=== PATIENT | male | born 1960 | race Two or more races ===

== ENCOUNTER → 2016-08-16 | Outpatient (CLI) | payer BC ==
[~2016-08-16] MED LIST: MULTTAB99 PO
[2016-08-16 07:58] LABS: Basophils # (auto) 0 uL; Basophils % (auto) 0.3 % (0.0-2.0); Eosinophils # (auto) 0.2 uL; Eosinophils % (auto) 2.3 % (0.0-7.0); Hematocrit 43.6 % (41.0-53.0); Hemoglobin 15.1 g/dL (13.5-17.5); Lymphocytes # (auto) 2.6 uL; Lymphocytes % (auto) 30.2 % (10.0-50.0); Mean Corpuscular Hemoglobin 31.4 pg (28.0-32.0); Mean Corpuscular Hgb Conc. 34.6 g/dL (32.0-36.0); Mean Corpuscular Volume 90.7 fL (80.0-100.0); Monocytes # (auto) 0.4 uL; Monocytes % (auto) 4.2 % (0.0-12.0); Neutrophils # (auto) 5.4 uL; Platelet Count (auto) 200 10^3/uL (140-450); White Blood Cell 8.6 10^3/uL (4.4-10.8)
[2016-08-16 08:18] LABS: Albumin 3.6 g/dL (3.4-5.0); Alkaline Phosphatase 134 U/L (45-117); Anion Gap 11 (5-15); Aspartate Aminotransferase 49 U/L (15-37); BUN/Creatinine Ratio 17.9; Bilirubin, Total 0.8 mg/dL (0.2-1.0); Blood Urea Nitrogen 15 mg/dL (7-18); Calcium 8.4 mg/dL (8.5-10.1); Carbon Dioxide 25 mmol/L (21-32); Chloride 110 mmol/L (98-107); Cholesterol 162 mg/dL (<200); GFR African American 122 mL/min; GFR Non-African American 100 mL/min; Glucose 115 mg/dL (74-106); HDL Cholesterol 26 mg/dL (40-59); Potassium 3.8 mmol/L (3.5-5.1); Sodium 146 mmol/L (136-145); Total Protein 7.8 g/dL (6.4-8.2); Triglycerides 582 mg/dL (<150)
== END | disposition home or self-care (01) ==
LOC: LAB 06:48
DX: I10 Essential (primary) hypertension (principal); Z83.49 Family history of other endocrine, nutritional and metabolic diseases; Z12.5 Encounter for screening for malignant neoplasm of prostate
CPT/HCPCS: 36415; 80053; 80061; 83036; 84153; 84443; 85025

== ENCOUNTER → 2018-06-08 | Outpatient (CLI) | payer BC ==
[2018-06-08 10:34] LABS: Basophils # (auto) 0.1 uL; Basophils % (auto) 0.7 % (0.0-2.0); Eosinophils # (auto) 0.3 uL; Eosinophils % (auto) 3.5 % (0.0-7.0); Hematocrit 46.3 % (41.0-53.0); Hemoglobin 15.7 g/dL (13.5-17.5); Lymphocytes % (auto) 37.2 % (10.0-50.0); Mean Corpuscular Hemoglobin 32.1 pg (28.0-32.0); Mean Corpuscular Volume 94.4 fL (80.0-100.0); Monocytes # (auto) 0.6 uL; Monocytes % (auto) 7.3 % (0.0-12.0); Neutrophils # (auto) 4.1 uL; Neutrophils % (auto) 51.3 % (37.0-80.0); Nucleated Red Blood Cells % 0.1 %; Platelet Count (auto) 140 10^3/uL (140-450); Red Blood Cells 4.91 10^6/uL (4.5-5.90); Red Cell Distribution Width 12.4 % (11.8-14.3); White Blood Cell 8.1 10^3/uL (4.4-10.8)
[2018-06-08 10:55] LABS: Albumin 3.7 g/dL (3.4-5.0); Calcium 9.1 mg/dL (8.5-10.1); Potassium 4.4 mmol/L (3.5-5.1)
[2018-06-08 11:00] LABS: BUN/Creatinine Ratio 22.5; Bilirubin, Total 1.4 mg/dL (0.2-1.0); Total Protein 8.2 g/dL (6.4-8.2)
[2018-06-08 11:01] LABS: Free T4 (Free Thyroxine) 0.73 ng/dL (0.89-1.76); Prostate Specific Antigen 0.48 ng/mL (0.0-4.0)
== END | disposition home or self-care (01) ==
LOC: LAB 10:13
PROVIDERS: ATTEND Internal Medicine
DX: I10 Essential (primary) hypertension (principal); E78.5 Hyperlipidemia, unspecified
CPT/HCPCS: 36415; 80053; 84153; 84439; 84443; 85025

== ENCOUNTER 2020-01-13 15:50 | Inpatient (IN) | payer BC ==
[~2020-01-13] VITALS: Ht 175.3 cm; Wt 95.0 kg
[2020-01-13] MEDS ORDERED: ENOXAPARIN SOD 100 MG/1 ML SYRINGE SC ONE ×2 (16:15→17:00)
[2020-01-13] MEDS ORDERED: ZINC SULFATE 220mg CAP or TAB PO ONE (16:15)
[2020-01-13] MEDS ORDERED: ASCORBIC ACID 500 MG TAB PO ONE (16:15)
[2020-01-13] MEDS ORDERED: PANTOPRAZOLE 40 MG/10 ML VIAL INJ IV ONE (16:15)
[2020-01-13] MEDS ORDERED: AZITHROMYCIN 500MG/ 250ML 250 ML IV ONE (16:15)
[2020-01-13] MEDS ORDERED: methylPREDNISolone SOD SUCC 125 MG/2 ML VL IV ONE ×2 (16:15→19:45)
[2020-01-13 16:59] LABS: Basophils # (auto) 0 10 ^3/uL (0-0.2); Basophils % (auto) 0.4 % (0.0-2.0); Eosinophils # (auto) 0 10 ^3/uL (0-0.8); Hemoglobin 15.4 g/dL (13.5-17.5); Lymphocytes # (auto) 0.5 10 ^3/uL (0.4-5.4); Lymphocytes % (auto) 3.8 % (10.0-50.0); Mean Corpuscular Hemoglobin 32.5 pg (28.0-32.0); Mean Corpuscular Hgb Conc. 34.2 g/dL (32.0-36.0); Monocytes # (auto) 0.2 10 ^3/uL (0-1.3); Monocytes % (auto) 1.3 % (0.0-12.0); Neutrophils # (auto) 11.8 10 ^3/uL (1.6-8.6); Neutrophils % (auto) 94.5 % (37.0-80.0); Platelet Count (auto) 102 10^3/uL (140-450); Red Blood Cells 4.73 10^6/uL (4.5-5.90); Red Cell Distribution Width 13.3 % (11.8-14.3); White Blood Cell 12.5 10^3/uL (4.4-10.8)
[2020-01-13] MEDS ORDERED: NITROGLYCERIN 0.4 MG SL TAB SL PRN (17:00)
[2020-01-13] MEDS ORDERED: LORazepam 2MG/ML-1ML VIAL IV PRN (17:00)
[2020-01-13] MEDS ORDERED: MORPHINE SULFATE 4 MG/ML SYR/VIAL IV PRN (17:00)
[2020-01-13] MEDS ORDERED: VANCOMYCIN PER PHARMACY 1,000 MG IV SCH (17:00)
[2020-01-13] MEDS ORDERED: MORPHINE SULF INJ 2 MG/ML SYRINGE 1ML IV PRN ×2 (17:00→18:15)
[2020-01-13] MEDS ORDERED: ONDANSETRON HCL 4 MG/2 ML VIAL ONE (17:06)
[2020-01-13 17:07] LABS: Albumin 2.1 g/dL (3.4-5.0); Calcium 8.1 mg/dL (8.5-10.1); Potassium 4.5 mmol/L (3.5-5.1)
[2020-01-13] MEDS: ENOXAPARIN SOD 100 MG/1 ML SYRINGE SC SCH (17:10)
[2020-01-13 17:12] LABS: Bilirubin, Total 4.2 mg/dL (0.2-1.0); Lactic Acid w/Reflex 6.1 mmol/L (0.4-2.0); Total Protein 7.1 g/dL (6.4-8.2)
[2020-01-13] MEDS ORDERED: ONDANSETRON HCL 4 MG/2 ML VIAL IV ONE (17:15)
[2020-01-13] MEDS ORDERED: ACETAMINOPHEN 500 MG TAB PO ONE (17:15)
[2020-01-13 17:22] LABS: CRP High Sensitivity 12.9 mg/dL (< 0.3)
[2020-01-13] MEDS ORDERED: SODIUM CHLORIDE 0.9% 1,000 ML IV SCH (17:33)
[2020-01-13] MEDS ORDERED: LACTATED RINGER'S 1,000 ML IV ONE (18:00)
[2020-01-13] MEDS: FUROSEMIDE 20 MG/2 ML VIAL IV SCH (18:00)
[2020-01-13] MEDS: PIPERACILLIN-TAZOB 3.375GM 100 ML IV SCH (18:00)
[2020-01-13] MEDS: HYDROCORTISONE SOD SUCC 100 MG/2ML INJ VIAL IV SCH (18:00)
[2020-01-13] MEDS ORDERED: PIPERACILLIN-TAZOB 3.375GM 3.375 GM in D5W 5% 100 ML IV SCH (18:00)
[2020-01-13] MEDS ORDERED: PIPERACILLIN-TAZOB 3.375GM 100 ML IV ONE (18:25)
[2020-01-13 18:59] VITALS: BP 100/64
[2020-01-13] MEDS ORDERED: LISI-285 PO (19:42)
[2020-01-13] MEDS ORDERED: ASPI-498 PO (19:42)
[2020-01-13] MEDS ORDERED: diphenhdrAMINE HCL 50 MG/1 ML VL IV ONE (19:45)
[2020-01-13] MEDS ORDERED: ACETAMINOPHEN 650 mg PER 20 mL UD PO ONE (19:45)
[2020-01-13] MEDS ORDERED: TOCILIZUMAB 400 MG in SODIUM CHL 0.9% 80 ML IV ONE (20:00)
[2020-01-13 20:08] LABS: Lactic Acid w/Reflex 5.1 mmol/L (0.4-2.0)
[2020-01-13] MEDS ORDERED: ACETAMINOPHEN 325 MG TAB PO ONE ×2 (20:30)
[2020-01-13] MEDS ORDERED: VANCOMYCIN 1GM/250ML 250 ML IV SCH (21:00)
[2020-01-13 21:15] LABS: INR 1.16 (0.9-1.15); Partial Thromboplastin Time 44.3 sec (23.64-32.05)
[2020-01-13] MEDS: FAMOTIDINE (10MG/ML) 2ML VL IV SCH (22:15)
[2020-01-13 23:19] VITALS: BP 104/60
[2020-01-14] VITALS (7 sets, daily range): BP systolic 104–156; BP diastolic 60–76
[2020-01-14 03:51] LABS: Urine Amorphous Crystal FEW /hpf (None Seen); Urine Bacteria NONE SEEN /hpf (None Seen); Urine Blood Negative /uL (Negative); Urine Hyaline Cast MANY /lpf (0 - 2); Urine Mucus FEW (None Seen); Urine Specific Gravity 1.022 (1.001-1.035); Urine WBC 7 /hpf (0 - 3)
[2020-01-14] MEDS: HYDROCORTISONE SOD SUCC 100 MG/2ML INJ VIAL IV SCH ×4 (06:00→17:42)
[2020-01-14] MEDS: PIPERACILLIN-TAZOB 3.375GM 100 ML IV SCH ×2 (06:00)
[2020-01-14] MEDS: FUROSEMIDE 20 MG/2 ML VIAL IV SCH ×2 (06:00→17:41)
[2020-01-14] MEDS: FAMOTIDINE (10MG/ML) 2ML VL IV SCH (07:34)
[2020-01-14] MEDS: ASCORBIC ACID 1,000 MG TAB PO SCH (07:34)
[2020-01-14] MEDS: ENOXAPARIN SOD 100 MG/1 ML SYRINGE SC SCH ×2 (07:34→22:00)
[2020-01-14 07:55] LABS: Basophils # (auto) 0 10 ^3/uL (0-0.2); Basophils % (auto) 0.1 % (0.0-2.0); Eosinophils # (auto) 0 10 ^3/uL (0-0.8); Hematocrit 43.3 % (41.0-53.0); Hemoglobin 14.7 g/dL (13.5-17.5); Lymphocytes # (auto) 0.4 10 ^3/uL (0.4-5.4); Lymphocytes % (auto) 5.8 % (10.0-50.0); Mean Corpuscular Hemoglobin 32.2 pg (28.0-32.0); Mean Corpuscular Hgb Conc. 33.9 g/dL (32.0-36.0); Mean Corpuscular Volume 95.2 fL (80.0-100.0); Monocytes # (auto) 0.1 10 ^3/uL (0-1.3); Monocytes % (auto) 1.5 % (0.0-12.0); Neutrophils # (auto) 6.9 10 ^3/uL (1.6-8.6); Neutrophils % (auto) 92.6 % (37.0-80.0); Platelet Count (auto) 74 10^3/uL (140-450); Red Blood Cells 4.55 10^6/uL (4.5-5.90); Red Cell Distribution Width 13.3 % (11.8-14.3); White Blood Cell 7.5 10^3/uL (4.4-10.8)
[2020-01-14 08:08] LABS: INR 1.19 (0.9-1.15); Partial Thromboplastin Time 53.1 sec (23.64-32.05)
[2020-01-14 08:17] LABS: Potassium 4.2 mmol/L (3.5-5.1)
[2020-01-14] MEDS ORDERED: diphenhdrAMINE HCL 50 MG/1 ML VL IV ONE ×2 (08:30→09:00)
[2020-01-14] MEDS ORDERED: ACETAMINOPHEN 650 mg PER 20 mL UD PO ONE ×2 (08:30→09:00)
[2020-01-14] MEDS ORDERED: methylPREDNISolone SOD SUCC 125 MG/2 ML VL IV ONE (08:30)
[2020-01-14 08:32] LABS: Albumin 1.8 g/dL (3.4-5.0); BUN/Creatinine Ratio 34.8; Bilirubin, Total 2.9 mg/dL (0.2-1.0); CRP High Sensitivity 13.6 mg/dL (< 0.3); Calcium 7.9 mg/dL (8.5-10.1); Phosphorus 4.5 mg/dL (2.5-4.90); Total Protein 6.5 g/dL (6.4-8.2); Uric Acid 8.6 mg/dL (3.5-7.2)
[2020-01-14] MEDS ORDERED: TOCILIZUMAB 400 MG in SODIUM CHL 0.9% 80 ML IV ONE (09:00)
[2020-01-14] MEDS: BUDESONIDE (INHALATION) 180 MCG IH IN SCH ×2 (10:00→22:59)
[2020-01-14] MEDS ORDERED: CHOLECALCIFEROL (VITD3) 2,000 UNIT CAP PO SCH (10:00)
[2020-01-14] MEDS ORDERED: AZITHROMYCIN 500MG/ 250ML 250 ML IV ONE (10:45)
[2020-01-14] MEDS ORDERED: REMDESIVIR 200 MG in NS 210ml LOADING DOSE ADULT IV ONE ×2 (11:15→16:00)
[2020-01-14] MEDS: ALBUTEROL SULF HFA 90MCG INH 200DOSE IN SCH ×2 (14:31→22:59)
[2020-01-14] MEDS ORDERED: THIAMINE 100mg/ml INJ (200mg/2ml VIAL) IM ONE (19:15)
[2020-01-14] MEDS ORDERED: dilTIAZem 25 MG/5 ML VIAL IV ONE (23:56)
[2020-01-15] VITALS (10 sets, daily range): BP systolic 91–150; BP diastolic 54–91
[2020-01-15] MEDS ORDERED: dilTIAZem 25 MG/5 ML VIAL IV ONE
[2020-01-15 03:46] LABS: Basophils # (auto) 0 10 ^3/uL (0-0.2); Eosinophils # (auto) 0 10 ^3/uL (0-0.8); Hematocrit 42.7 % (41.0-53.0); Hemoglobin 14.5 g/dL (13.5-17.5); Lymphocytes # (auto) 0.4 10 ^3/uL (0.4-5.4); Lymphocytes % (auto) 3.4 % (10.0-50.0); Mean Corpuscular Hemoglobin 31.9 pg (28.0-32.0); Mean Corpuscular Volume 93.6 fL (80.0-100.0); Monocytes # (auto) 0.3 10 ^3/uL (0-1.3); Monocytes % (auto) 2.2 % (0.0-12.0); Neutrophils # (auto) 11.9 10 ^3/uL (1.6-8.6); Neutrophils % (auto) 94.4 % (37.0-80.0); Platelet Count (auto) 93 10^3/uL (140-450); Red Blood Cells 4.56 10^6/uL (4.5-5.90); Red Cell Distribution Width 13.2 % (11.8-14.3); White Blood Cell 12.6 10^3/uL (4.4-10.8)
[2020-01-15 04:03] LABS: Albumin 1.8 g/dL (3.4-5.0); Calcium 7.8 mg/dL (8.5-10.1); Potassium 3.8 mmol/L (3.5-5.1)
[2020-01-15 04:10] LABS: Lactic Acid w/Reflex 2.5 mmol/L (0.4-2.0)
[2020-01-15 04:12] LABS: BUN/Creatinine Ratio 46.7; Bilirubin, Total 2.8 mg/dL (0.2-1.0); CRP High Sensitivity 10.1 mg/dL (< 0.3); Total Protein 6.3 g/dL (6.4-8.2)
[2020-01-15] MEDS ORDERED: AMIODARONE HCL (50 MG/ ML) 3 ML VIAL IV ONE (05:24)
[2020-01-15] MEDS ORDERED: AMIODARONE HCL 900 MG IV ONE (05:25)
[2020-01-15] MEDS ORDERED: AMIODARONE HCL 150 MG in D5W 5% 100 ML IV ONE (05:30)
[2020-01-15] MEDS ORDERED: AMIODARONE 450mg/250ml AE 250 ML IV SCH (05:31)
[2020-01-15] MEDS: ALBUTEROL SULF HFA 90MCG INH 200DOSE IN SCH ×3 (06:00→22:37)
[2020-01-15] MEDS: FUROSEMIDE 20 MG/2 ML VIAL IV SCH ×2 (06:00→18:21)
[2020-01-15] MEDS: THIAMINE 100mg/ml INJ (200mg/2ml VIAL) IV SCH (10:00)
[2020-01-15] MEDS: ZINC SULFATE 220mg CAP or TAB PO SCH (10:00)
[2020-01-15] MEDS: AZITHROMYCIN 500MG/ 250ML 250 ML IV SCH (10:00)
[2020-01-15] MEDS ORDERED: DexAMETHasone SOD PHOS 10MG/1ML VIAL INJ IV SCH (10:00)
[2020-01-15] MEDS: DexAMETHasone SOD PHOS 10MG/1ML VIAL INJ IV SCH (10:00)
[2020-01-15] MEDS: ASCORBIC ACID 1,000 MG TAB PO SCH (10:00)
[2020-01-15] MEDS: ENOXAPARIN SOD 100 MG/1 ML SYRINGE SC SCH ×2 (10:00→21:51)
[2020-01-15] MEDS: BUDESONIDE (INHALATION) 180 MCG IH IN SCH ×2 (10:00→22:37)
[2020-01-15] MEDS: CHOLECALCIFEROL (VITD3) 1,000UNIT=25mCg TAB PO SCH (10:55)
[2020-01-15] MEDS: AMIODARONE 450mg/250ml AE 250 ML IV SCH (12:00)
[2020-01-15] MEDS: FAMOTIDINE INJECTION 40 MG in SODIUM CHL 0.9% 100 ML IV SCH (13:14)
[2020-01-15] MEDS: REMDESIVIR 100mg in NS 230ml DAILYx4DAYS (NO VENT) IV SCH (16:01)
[2020-01-15] MEDS ORDERED: DIGOXIN (250MCG/ML) 2 ML AMPULE IV ONE (16:45)
[2020-01-16] VITALS (10 sets, daily range): BP systolic 121–150; BP diastolic 70–101
[2020-01-16 02:50] LABS: Basophils # (auto) 0 10 ^3/uL (0-0.2); Basophils % (auto) 0.1 % (0.0-2.0); Eosinophils # (auto) 0 10 ^3/uL (0-0.8); Hematocrit 41.1 % (41.0-53.0); Hemoglobin 13.9 g/dL (13.5-17.5); Lymphocytes # (auto) 0.4 10 ^3/uL (0.4-5.4); Lymphocytes % (auto) 3.4 % (10.0-50.0); Mean Corpuscular Hemoglobin 31.9 pg (28.0-32.0); Mean Corpuscular Hgb Conc. 33.9 g/dL (32.0-36.0); Mean Corpuscular Volume 94.1 fL (80.0-100.0); Monocytes # (auto) 0.5 10 ^3/uL (0-1.3); Monocytes % (auto) 4.5 % (0.0-12.0); Neutrophils # (auto) 9.7 10 ^3/uL (1.6-8.6); Nucleated Red Blood Cells % 0.1 %; Platelet Count (auto) 97 10^3/uL (140-450); Red Blood Cells 4.37 10^6/uL (4.5-5.90); Red Cell Distribution Width 13.3 % (11.8-14.3); White Blood Cell 10.5 10^3/uL (4.4-10.8)
[2020-01-16] MEDS: AMIODARONE 450mg/250ml AE 250 ML IV SCH ×2 (03:08→17:11)
[2020-01-16 03:19] LABS: Calcium 7.8 mg/dL (8.5-10.1); Magnesium 3.1 mg/dL (1.6-2.6); Potassium 3.8 mmol/L (3.5-5.1)
[2020-01-16 03:27] LABS: BUN/Creatinine Ratio 54.5; Bilirubin, Total 2.6 mg/dL (0.2-1.0); CRP High Sensitivity 4.3 mg/dL (< 0.3); Total Protein 6.3 g/dL (6.4-8.2)
[2020-01-16] MEDS: FUROSEMIDE 20 MG/2 ML VIAL IV SCH (06:11)
[2020-01-16] MEDS: BUDESONIDE (INHALATION) 180 MCG IH IN SCH ×2 (06:15→23:12)
[2020-01-16] MEDS: ALBUTEROL SULF HFA 90MCG INH 200DOSE IN SCH ×3 (06:15→23:12)
[2020-01-16] MEDS: ENOXAPARIN SOD 100 MG/1 ML SYRINGE SC SCH ×2 (10:00→21:52)
[2020-01-16] MEDS: ASCORBIC ACID 1,000 MG TAB PO SCH (10:00)
[2020-01-16] MEDS: ZINC SULFATE 220mg CAP or TAB PO SCH (10:00)
[2020-01-16] MEDS: CHOLECALCIFEROL (VITD3) 1,000UNIT=25mCg TAB PO SCH (10:00)
[2020-01-16] MEDS: AZITHROMYCIN 500MG/ 250ML 250 ML IV SCH (10:00)
[2020-01-16] MEDS: THIAMINE 100mg/ml INJ (200mg/2ml VIAL) IV SCH (10:00)
[2020-01-16] MEDS: DexAMETHasone SOD PHOS 10MG/1ML VIAL INJ IV SCH (11:00)
[2020-01-16] MEDS: FAMOTIDINE INJECTION 40 MG in SODIUM CHL 0.9% 100 ML IV SCH (11:00)
[2020-01-16] MEDS: REMDESIVIR 100mg in NS 230ml DAILYx4DAYS (NO VENT) IV SCH (16:04)
[2020-01-17] VITALS (60 sets, daily range): BP systolic 72–217; BP diastolic 38–108
[2020-01-17] MEDS: ALBUTEROL SULF 2.5 MG/0.5ML(0.5%) NEB SOLN NEB SCH ×2 (01:50→14:28)
[2020-01-17 05:20] LABS: Hematocrit 43.6 % (41.0-53.0); Hemoglobin 14.8 g/dL (13.5-17.5); Mean Corpuscular Hemoglobin 32.5 pg (28.0-32.0); Mean Corpuscular Hgb Conc. 33.9 g/dL (32.0-36.0); Mean Corpuscular Volume 95.8 fL (80.0-100.0); Platelet Count (auto) 84 10^3/uL (140-450); Red Blood Cells 4.55 10^6/uL (4.5-5.90); Red Cell Distribution Width 13.3 % (11.8-14.3); White Blood Cell 7.6 10^3/uL (4.4-10.8)
[2020-01-17 05:36] LABS: Albumin 2.1 g/dL (3.4-5.0); Calcium 8.1 mg/dL (8.5-10.1); Magnesium 2.8 mg/dL (1.6-2.6); Potassium 3.7 mmol/L (3.5-5.1)
[2020-01-17 05:37] LABS: Lactic Acid w/Reflex 3.2 mmol/L (0.4-2.0)
[2020-01-17 05:40] LABS: Band Neutrophils % (manual) 0; Basophils % (manual) 0 (0.0-2.0); Blast Cells 0; Eosinophils % (manual) 0 (0-7); Metamyelocytes % 0; Myelocytes % 0; Promyelocytes % 0; Reactive Lymphocytes 0
[2020-01-17 05:55] LABS: BUN/Creatinine Ratio 48.1; Bilirubin, Total 2.6 mg/dL (0.2-1.0); Total Protein 6.3 g/dL (6.4-8.2)
[2020-01-17] MEDS: FUROSEMIDE 20 MG/2 ML VIAL IV SCH ×2 (06:04→18:02)
[2020-01-17 06:27] LABS: Lymphocytes % (manual) 4 (10.0-50.0); Monocytes % (manual) 2 (0-12)
[2020-01-17] MEDS: ALBUTEROL SULF HFA 90MCG INH 200DOSE IN SCH (07:31)
[2020-01-17] MEDS: BUDESONIDE (INHALATION) 180 MCG IH IN SCH (07:32)
[2020-01-17] MEDS ORDERED: ETOMIDATE (2MG/ML) 20ML VIAL IV ONE ×2 (09:37→11:00)
[2020-01-17] MEDS ORDERED: SUCCINYLCHOLINE CHLORIDE 20 MG/ML 10ML VIAL IV ONE ×2 (09:39→11:00)
[2020-01-17] MEDS ORDERED: PROPOFOL 100 ML IV ONE (10:05)
[2020-01-17] MEDS ORDERED: MIDAZOLAM DRIP 50 mg/50mL 50 ML IV ONE (10:05)
[2020-01-17] MEDS: MIDAZOLAM DRIP 50 mg/50mL 50 ML IV SCH ×3 (10:10→20:14)
[2020-01-17] MEDS: PROPOFOL 100 ML IV SCH ×3 (10:10→19:08)
[2020-01-17] MEDS ORDERED: fentaNYL Drip 2500mCg/250mlNS 250 ML IV ONE (10:23)
[2020-01-17] MEDS: fentaNYL Drip 2500mCg/250mlNS 250 ML IV SCH ×2 (11:00→20:15)
[2020-01-17] MEDS ORDERED: NOREPINEPHRINE 8 MG/250ML KIT 250 ML IV ONE (11:02)
[2020-01-17] MEDS ORDERED: ATRACURIUM BESYLATE 1,000 MG in D5W 5% 150 ML IV ONE (11:30)
[2020-01-17] MEDS: ACETAMINOPHEN 325 MG TAB PO PRN (11:30)
[2020-01-17] MEDS ORDERED: PHENYLEPHRINE IV 250 ML IV ONE (12:08)
[2020-01-17] MEDS: ENOXAPARIN SOD 100 MG/1 ML SYRINGE SC SCH (13:18)
[2020-01-17] MEDS: ASCORBIC ACID 1,000 MG TAB PO SCH (13:19)
[2020-01-17] MEDS: ZINC SULFATE 220mg CAP or TAB PO SCH (13:19)
[2020-01-17] MEDS: THIAMINE 100mg/ml INJ (200mg/2ml VIAL) IV SCH (13:19)
[2020-01-17] MEDS: DexAMETHasone SOD PHOS 10MG/1ML VIAL INJ IV SCH (13:19)
[2020-01-17] MEDS: CHOLECALCIFEROL (VITD3) 1,000UNIT=25mCg TAB PO SCH (13:20)
[2020-01-17] MEDS: FAMOTIDINE INJECTION 40 MG in SODIUM CHL 0.9% 100 ML IV SCH (13:20)
[2020-01-17] MEDS: AZITHROMYCIN 500MG/ 250ML 250 ML IV SCH (13:22)
[2020-01-17] MEDS: PHENYLEPHRINE IV 250 ML IV SCH ×2 (17:00→20:13)
[2020-01-17] MEDS: NOREPINEPHRINE 8 MG/250ML KIT 250 ML IV SCH ×2 (17:00→20:15)
[2020-01-17] MEDS: REMDESIVIR 100mg in NS 230ml DAILYx4DAYS (NO VENT) IV SCH (17:21)
[2020-01-17] MEDS: ATRACURIUM BESYLATE 1,000 MG in D5W 5% 150 ML IV SCH (22:17)
[2020-01-18] VITALS (93 sets, daily range): BP systolic 83–151; BP diastolic 43–72
[2020-01-18] MEDS: NOREPINEPHRINE 8 MG/250ML KIT 250 ML IV SCH ×4 (00:58→15:15)
[2020-01-18] MEDS: MIDAZOLAM DRIP 50 mg/50mL 50 ML IV SCH ×4 (00:59→22:40)
[2020-01-18] MEDS: BUDESONIDE (INHALATION) 0.5 MG/2 ML NEB NEB SCH ×3 (01:50→22:07)
[2020-01-18] MEDS: ENOXAPARIN SOD 100 MG/1 ML SYRINGE SC SCH ×3 (02:58→22:08)
[2020-01-18] MEDS: PHENYLEPHRINE IV 250 ML IV SCH ×3 (04:08→13:50)
[2020-01-18 04:50] LABS: Calcium 6.6 mg/dL (8.5-10.1)
[2020-01-18 04:56] LABS: Bilirubin, Total 3.3 mg/dL (0.2-1.0); Total Protein 5.7 g/dL (6.4-8.2)
[2020-01-18] MEDS: PROPOFOL 100 ML IV SCH ×5 (05:40→20:59)
[2020-01-18] MEDS: ALBUTEROL SULF 2.5 MG/0.5ML(0.5%) NEB SOLN NEB SCH ×3 (06:53→22:07)
[2020-01-18] MEDS: FUROSEMIDE 20 MG/2 ML VIAL IV SCH ×2 (07:42→18:45)
[2020-01-18] MEDS: FAMOTIDINE INJECTION 40 MG in SODIUM CHL 0.9% 100 ML IV SCH (09:00)
[2020-01-18] MEDS: fentaNYL Drip 2500mCg/250mlNS 250 ML IV SCH ×2 (09:37→22:39)
[2020-01-18] MEDS: AZITHROMYCIN 500MG/ 250ML 250 ML IV SCH (09:58)
[2020-01-18] MEDS: DexAMETHasone SOD PHOS 10MG/1ML VIAL INJ IV SCH (10:01)
[2020-01-18] MEDS: THIAMINE 100mg/ml INJ (200mg/2ml VIAL) IV SCH (10:15)
[2020-01-18] MEDS: ZINC SULFATE 220mg CAP or TAB PO SCH (10:31)
[2020-01-18] MEDS: CHOLECALCIFEROL (VITD3) 1,000UNIT=25mCg TAB PO SCH (10:32)
[2020-01-18] MEDS: ACETAMINOPHEN 500 MG TAB PO PRN (10:38)
[2020-01-18] MEDS: ASCORBIC ACID 1,000 MG TAB PO SCH (10:39)
[2020-01-18] MEDS: DOXYCYCLINE 100MG/250ML 250 ML IV SCH ×2 (11:30→23:27)
[2020-01-18] MEDS: REMDESIVIR 100mg in NS 230ml DAILYx4DAYS (NO VENT) IV SCH (17:19)
[2020-01-18 19:09] LABS: BUN/Creatinine Ratio 27.9; Calcium 6.4 mg/dL (8.5-10.1); Potassium 5.2 mmol/L (3.5-5.1)
[2020-01-18] MEDS: MEROPENEM 1GM IVPB 100 ML IV SCH (22:07)
[2020-01-18] MEDS: ATRACURIUM BESYLATE 1,000 MG in D5W 5% 150 ML IV SCH (22:36)
[2020-01-19] VITALS (91 sets, daily range): BP systolic 72–149; BP diastolic 42–80
[2020-01-19] MEDS: PROPOFOL 100 ML IV SCH ×3 (00:52→21:01)
[2020-01-19] MEDS: NOREPINEPHRINE 8 MG/250ML KIT 250 ML IV SCH ×3 (00:53→11:03)
[2020-01-19] MEDS: MIDAZOLAM DRIP 50 mg/50mL 50 ML IV SCH ×5 (02:01→21:02)
[2020-01-19 05:49] LABS: Basophils # (auto) 0.1 10 ^3/uL (0-0.2); Basophils % (auto) 0.3 % (0.0-2.0); Eosinophils # (auto) 0 10 ^3/uL (0-0.8); Hematocrit 39.5 % (41.0-53.0); Hemoglobin 13.4 g/dL (13.5-17.5); Lymphocytes # (auto) 0.7 10 ^3/uL (0.4-5.4); Lymphocytes % (auto) 3.9 % (10.0-50.0); Mean Corpuscular Hemoglobin 32.4 pg (28.0-32.0); Mean Corpuscular Hgb Conc. 33.9 g/dL (32.0-36.0); Mean Corpuscular Volume 95.6 fL (80.0-100.0); Monocytes # (auto) 0.7 10 ^3/uL (0-1.3); Monocytes % (auto) 3.8 % (0.0-12.0); Nucleated Red Blood Cells % 0.4 %; Platelet Count (auto) 165 10^3/uL (140-450); Red Blood Cells 4.13 10^6/uL (4.5-5.90); Red Cell Distribution Width 13.4 % (11.8-14.3); White Blood Cell 17.4 10^3/uL (4.4-10.8)
[2020-01-19] MEDS: FUROSEMIDE 20 MG/2 ML VIAL IV SCH ×2 (05:50→18:27)
[2020-01-19 06:01] LABS: Albumin 1.7 g/dL (3.4-5.0); Calcium 6.9 mg/dL (8.5-10.1); Potassium 5.2 mmol/L (3.5-5.1)
[2020-01-19 06:06] LABS: BUN/Creatinine Ratio 29.4
[2020-01-19] MEDS: PHENYLEPHRINE IV 250 ML IV SCH ×3 (06:10→22:50)
[2020-01-19 06:12] LABS: Bilirubin, Total 3.6 mg/dL (0.2-1.0); Total Protein 5.4 g/dL (6.4-8.2)
[2020-01-19] MEDS: BUDESONIDE (INHALATION) 0.5 MG/2 ML NEB NEB SCH ×2 (06:27→22:12)
[2020-01-19] MEDS: ALBUTEROL SULF 2.5 MG/0.5ML(0.5%) NEB SOLN NEB SCH ×3 (06:27→22:12)
[2020-01-19] MEDS: MEROPENEM 1GM IVPB 100 ML IV SCH ×2 (09:28→22:00)
[2020-01-19] MEDS ORDERED: SODIUM ZIRCONIUM CYCL 10 GM PAK PO ONE (09:30)
[2020-01-19] MEDS ORDERED: ALBUTEROL SULF 2.5 MG/0.5ML(0.5%) NEB SOLN NEB ONE (09:30)
[2020-01-19] MEDS: fentaNYL Drip 2500mCg/250mlNS 250 ML IV SCH ×2 (09:30→23:30)
[2020-01-19] MEDS ORDERED: SODIUM BICARBONATE 8.4% INJ 50ML SYRINGE IV ONE (09:30)
[2020-01-19] MEDS ORDERED: FUROSEMIDE 40 MG/4 ML VIAL IV ONE (09:30)
[2020-01-19] MEDS: THIAMINE 100mg/ml INJ (200mg/2ml VIAL) IV SCH (09:31)
[2020-01-19] MEDS: CHOLECALCIFEROL (VITD3) 1,000UNIT=25mCg TAB PO SCH (09:32)
[2020-01-19] MEDS: ASCORBIC ACID 1,000 MG TAB PO SCH (09:32)
[2020-01-19] MEDS: ACETAMINOPHEN 325 MG TAB PO PRN (09:32)
[2020-01-19] MEDS: ENOXAPARIN SOD 100 MG/1 ML SYRINGE SC SCH ×2 (09:32→22:00)
[2020-01-19] MEDS: DexAMETHasone SOD PHOS 10MG/1ML VIAL INJ IV SCH (10:00)
[2020-01-19] MEDS: DOXYCYCLINE 100MG/250ML 250 ML IV SCH ×2 (12:00→23:30)
[2020-01-19] MEDS: ZINC SULFATE 220mg CAP or TAB PO SCH (12:23)
[2020-01-19] MEDS: FAMOTIDINE INJECTION 40 MG in SODIUM CHL 0.9% 100 ML IV SCH (12:23)
[2020-01-19] MEDS: SODIUM ZIRCONIUM CYCL 10 GM PAK PO SCH (15:00)
[2020-01-19] MEDS ORDERED: DEXTROSE (50%) 50ML SYRG IV PRN (15:15)
[2020-01-19] MEDS: NOREPINEPHRINE BITARTRATE 16 MG in SODIUM CHL 0.9% 250 ML IV SCH (16:00)
[2020-01-19] MEDS: DexAMETHasone 4 MG TAB PO ONE ×2 (16:00→18:09)
[2020-01-19] MEDS: InsuLIN REG 1unit/0.01ml Soln (100units/ml) SC SCH ×2 (17:19→22:01)
[2020-01-19] MEDS: ACCU-CHEK COMFORT CURVE STRIP VI SCH ×2 (17:19→22:00)
[2020-01-19 18:51] LABS: Calcium 6.9 mg/dL (8.5-10.1); Potassium 5.1 mmol/L (3.5-5.1)
[2020-01-19 18:54] LABS: Lactic Acid w/Reflex 3.6 mmol/L (0.4-2.0)
[2020-01-19] MEDS: ATRACURIUM BESYLATE 1,000 MG in D5W 5% 150 ML IV SCH (20:04)
[2020-01-19] MEDS: Glucerna 1.2 Cal 1Liter BOTTLE GT SCH (22:00)
[2020-01-19 23:05] LABS: Urine Bacteria FEW /hpf (None Seen); Urine Blood Negative /uL (Negative); Urine Hyaline Cast FEW /lpf (0 - 2); Urine Mucus FEW (None Seen); Urine Specific Gravity 1.017 (1.001-1.035); Urine WBC 1 /hpf (0 - 3)
[2020-01-19 23:14] LABS: Creatinine, Urine 82 mg/dL (30.0-125.0); Sodium Urine 22 mmol/L (40-220)
[2020-01-20] VITALS (95 sets, daily range): BP systolic 87–157; BP diastolic 45–86
[2020-01-20] MEDS: SODIUM ZIRCONIUM CYCL 10 GM PAK PO SCH ×4 (00:02→21:43)
[2020-01-20] MEDS: PROPOFOL 100 ML IV SCH ×2 (00:09→07:50)
[2020-01-20 05:31] LABS: Calcium 6.7 mg/dL (8.5-10.1)
[2020-01-20 05:34] LABS: Phosphorus 2.5 mg/dL (2.5-4.90)
[2020-01-20] MEDS: FUROSEMIDE 20 MG/2 ML VIAL IV SCH ×2 (06:06→17:26)
[2020-01-20] MEDS: ACCU-CHEK COMFORT CURVE STRIP VI SCH ×4 (06:07→21:43)
[2020-01-20] MEDS: InsuLIN REG 1unit/0.01ml Soln (100units/ml) SC SCH ×4 (06:07→21:43)
[2020-01-20] MEDS: PHENYLEPHRINE IV 250 ML IV SCH ×3 (06:18→23:50)
[2020-01-20] MEDS: BUDESONIDE (INHALATION) 0.5 MG/2 ML NEB NEB SCH ×2 (07:12→22:17)
[2020-01-20] MEDS: ALBUTEROL SULF 2.5 MG/0.5ML(0.5%) NEB SOLN NEB SCH ×3 (07:12→22:17)
[2020-01-20] MEDS: ASCORBIC ACID 1,000 MG TAB PO SCH (10:00)
[2020-01-20] MEDS: CHOLECALCIFEROL (VITD3) 1,000UNIT=25mCg TAB PO SCH (10:00)
[2020-01-20] MEDS: ENOXAPARIN SOD 100 MG/1 ML SYRINGE SC SCH ×2 (10:00→21:43)
[2020-01-20] MEDS: DexAMETHasone 4 MG TAB PO SCH (10:00)
[2020-01-20] MEDS: ZINC SULFATE 220mg CAP or TAB PO SCH (10:00)
[2020-01-20] MEDS: THIAMINE 100mg/ml INJ (200mg/2ml VIAL) IV SCH (10:17)
[2020-01-20] MEDS: MEROPENEM 1GM IVPB 100 ML IV SCH ×2 (10:17→21:43)
[2020-01-20] MEDS: PANTOPRAZOLE 40 MG/10 ML VIAL INJ IV SCH (10:17)
[2020-01-20] MEDS: DOXYCYCLINE 100MG/250ML 250 ML IV SCH (11:30)
[2020-01-20] MEDS ORDERED: NOREPINEPHRINE 8 MG/250ML KIT 250 ML IV ONE (18:13)
[2020-01-20] MEDS: NOREPINEPHRINE BITARTRATE 16 MG in SODIUM CHL 0.9% 250 ML IV SCH (18:28)
[2020-01-20] MEDS: ATRACURIUM BESYLATE 1,000 MG in D5W 5% 150 ML IV SCH (20:36)
[2020-01-21] VITALS (96 sets, daily range): BP systolic 84–125; BP diastolic 49–72
[2020-01-21] MEDS: DOXYCYCLINE 100MG/250ML 250 ML IV SCH ×3 (00:24→22:10)
[2020-01-21 05:29] LABS: Basophils # (auto) 0 10 ^3/uL (0-0.2); Basophils % (auto) 0.2 % (0.0-2.0); Eosinophils # (auto) 0 10 ^3/uL (0-0.8); Eosinophils % (auto) 0.1 % (0.0-7.0); Hematocrit 38.8 % (41.0-53.0); Mean Corpuscular Hgb Conc. 33.4 g/dL (32.0-36.0); Mean Corpuscular Volume 95.7 fL (80.0-100.0); Monocytes # (auto) 0.8 10 ^3/uL (0-1.3); Monocytes % (auto) 6.3 % (0.0-12.0); Neutrophils # (auto) 10.8 10 ^3/uL (1.6-8.6); Neutrophils % (auto) 85.4 % (37.0-80.0); Nucleated Red Blood Cells % 0.6 %; Platelet Count (auto) 158 10^3/uL (140-450); Red Blood Cells 4.06 10^6/uL (4.5-5.90); White Blood Cell 12.6 10^3/uL (4.4-10.8)
[2020-01-21] MEDS: FUROSEMIDE 20 MG/2 ML VIAL IV SCH ×2 (05:29→18:14)
[2020-01-21] MEDS: InsuLIN REG 1unit/0.01ml Soln (100units/ml) SC SCH ×4 (05:30→22:00)
[2020-01-21] MEDS: ACCU-CHEK COMFORT CURVE STRIP VI SCH ×4 (05:30→22:00)
[2020-01-21] MEDS: SODIUM ZIRCONIUM CYCL 10 GM PAK PO SCH (05:30)
[2020-01-21 05:53] LABS: Calcium 7.2 mg/dL (8.5-10.1); Potassium 4.7 mmol/L (3.5-5.1)
[2020-01-21 05:56] LABS: BUN/Creatinine Ratio 52.1
[2020-01-21] MEDS: BUDESONIDE (INHALATION) 0.5 MG/2 ML NEB NEB SCH ×2 (07:06→21:51)
[2020-01-21] MEDS: ALBUTEROL SULF 2.5 MG/0.5ML(0.5%) NEB SOLN NEB SCH ×3 (07:06→21:51)
[2020-01-21] MEDS: PHENYLEPHRINE IV 250 ML IV SCH ×3 (07:20→22:11)
[2020-01-21] MEDS: MEROPENEM 1GM IVPB 100 ML IV SCH ×2 (08:59→15:52)
[2020-01-21] MEDS: ENOXAPARIN SOD 100 MG/1 ML SYRINGE SC SCH ×2 (10:00→22:00)
[2020-01-21] MEDS: ASCORBIC ACID 1,000 MG TAB PO SCH (10:00)
[2020-01-21] MEDS: DexAMETHasone 4 MG TAB PO SCH (10:00)
[2020-01-21] MEDS: PANTOPRAZOLE 40 MG/10 ML VIAL INJ IV SCH (10:00)
[2020-01-21] MEDS: CHOLECALCIFEROL (VITD3) 1,000UNIT=25mCg TAB PO SCH (10:00)
[2020-01-21] MEDS: ZINC SULFATE 220mg CAP or TAB PO SCH (10:00)
[2020-01-21] MEDS: THIAMINE 100mg/ml INJ (200mg/2ml VIAL) IV SCH (10:00)
[2020-01-21] MEDS: PROPOFOL 100 ML IV SCH ×2 (10:46→22:35)
[2020-01-21] MEDS: MIDAZOLAM DRIP 50 mg/50mL 50 ML IV SCH (10:46)
[2020-01-21] MEDS: fentaNYL Drip 2500mCg/250mlNS 250 ML IV SCH ×2 (10:59→20:53)
[2020-01-21] MEDS: ATRACURIUM BESYLATE 1,000 MG in D5W 5% 150 ML IV SCH (19:51)
[2020-01-21] MEDS: NOREPINEPHRINE BITARTRATE 16 MG in SODIUM CHL 0.9% 250 ML IV SCH (22:10)
[2020-01-22] VITALS (99 sets, daily range): BP systolic 88–144; BP diastolic 46–72
[2020-01-22] MEDS: MIDAZOLAM DRIP 50 mg/50mL 50 ML IV SCH
[2020-01-22] MEDS: MEROPENEM 1GM IVPB 100 ML IV SCH ×3 (00:45→17:33)
[2020-01-22] MEDS: FUROSEMIDE 20 MG/2 ML VIAL IV SCH ×2 (05:03→17:36)
[2020-01-22] MEDS: ACCU-CHEK COMFORT CURVE STRIP VI SCH ×4 (05:55→22:00)
[2020-01-22] MEDS: InsuLIN REG 1unit/0.01ml Soln (100units/ml) SC SCH ×4 (05:55→22:00)
[2020-01-22] MEDS: ALBUTEROL SULF 2.5 MG/0.5ML(0.5%) NEB SOLN NEB SCH ×3 (06:17→22:27)
[2020-01-22] MEDS: BUDESONIDE (INHALATION) 0.5 MG/2 ML NEB NEB SCH ×2 (06:18→22:27)
[2020-01-22] MEDS: fentaNYL Drip 2500mCg/250mlNS 250 ML IV SCH (08:37)
[2020-01-22] MEDS: PHENYLEPHRINE IV 250 ML IV SCH ×2 (09:10→17:30)
[2020-01-22] MEDS: ASCORBIC ACID 1,000 MG TAB PO SCH (10:00)
[2020-01-22] MEDS: PANTOPRAZOLE 40 MG/10 ML VIAL INJ IV SCH (10:00)
[2020-01-22] MEDS: CHOLECALCIFEROL (VITD3) 1,000UNIT=25mCg TAB PO SCH (10:00)
[2020-01-22] MEDS: ENOXAPARIN SOD 100 MG/1 ML SYRINGE SC SCH (10:00)
[2020-01-22] MEDS: DexAMETHasone 4 MG TAB PO SCH (10:00)
[2020-01-22 10:18] LABS: Basophils # (auto) 0 10 ^3/uL (0-0.2); Basophils % (auto) 0.2 % (0.0-2.0); Eosinophils # (auto) 0 10 ^3/uL (0-0.8); Hematocrit 39.5 % (41.0-53.0); Lymphocytes # (auto) 1.1 10 ^3/uL (0.4-5.4); Lymphocytes % (auto) 6.1 % (10.0-50.0); Mean Corpuscular Hemoglobin 32.6 pg (28.0-32.0); Mean Corpuscular Hgb Conc. 32.9 g/dL (32.0-36.0); Mean Corpuscular Volume 99.1 fL (80.0-100.0); Monocytes # (auto) 1.1 10 ^3/uL (0-1.3); Neutrophils % (auto) 87.7 % (37.0-80.0); Nucleated Red Blood Cells % 0.3 %; Platelet Count (auto) 168 10^3/uL (140-450); Red Blood Cells 3.98 10^6/uL (4.5-5.90); Red Cell Distribution Width 14.8 % (11.8-14.3); White Blood Cell 18.3 10^3/uL (4.4-10.8)
[2020-01-22 10:22] LABS: Albumin 1.7 g/dL (3.4-5.0); Calcium 7.5 mg/dL (8.5-10.1)
[2020-01-22 10:25] LABS: Total Protein 5.2 g/dL (6.4-8.2)
[2020-01-22 10:56] LABS: Potassium 5.2 mmol/L (3.5-5.1)
[2020-01-22 11:10] LABS: BUN/Creatinine Ratio 56.9
[2020-01-22] MEDS: DOXYCYCLINE 100MG/250ML 250 ML IV SCH (11:35)
[2020-01-22] MEDS: THIAMINE 100mg/ml INJ (200mg/2ml VIAL) IV SCH (14:18)
[2020-01-22] MEDS ORDERED: PANTOPRAZOLE 40 MG/10 ML VIAL INJ IV ONE (15:00)
[2020-01-22] MEDS ORDERED: FLUCONAZOLE 200MG/100ML 100 ML IV ONE (15:00)
[2020-01-22] MEDS ORDERED: DexAMETHasone SOD PHOS 10MG/1ML VIAL INJ IV ONE (15:15)
[2020-01-22] MEDS: NOREPINEPHRINE BITARTRATE 16 MG in SODIUM CHL 0.9% 250 ML IV SCH (15:43)
[2020-01-22] MEDS: ZINC SULFATE 220mg CAP or TAB PO SCH (17:00)
[2020-01-22] MEDS: ENOXAPARIN SOD 80 MG/0.8ML SYRINGE SC SCH (22:00)
[2020-01-23] VITALS (101 sets, daily range): BP systolic 84–169; BP diastolic 42–89
[2020-01-23] MEDS: MEROPENEM 1GM IVPB 100 ML IV SCH ×3 (00:45→17:18)
[2020-01-23] MEDS: PHENYLEPHRINE IV 250 ML IV SCH ×3 (01:50→18:30)
[2020-01-23] MEDS: FUROSEMIDE 20 MG/2 ML VIAL IV SCH ×2 (06:00→17:57)
[2020-01-23] MEDS: InsuLIN REG 1unit/0.01ml Soln (100units/ml) SC SCH ×4 (06:08→22:00)
[2020-01-23] MEDS: ACCU-CHEK COMFORT CURVE STRIP VI SCH ×4 (06:10→22:00)
[2020-01-23] MEDS: MIDAZOLAM DRIP 50 mg/50mL 50 ML IV SCH (06:19)
[2020-01-23] MEDS: PROPOFOL 100 ML IV SCH ×2 (06:19→12:45)
[2020-01-23 06:21] LABS: Basophils # (auto) 0.1 10 ^3/uL (0-0.2); Basophils % (auto) 0.4 % (0.0-2.0); Eosinophils # (auto) 0 10 ^3/uL (0-0.8); Hematocrit 38.7 % (41.0-53.0); Hemoglobin 12.8 g/dL (13.5-17.5); Lymphocytes # (auto) 0.6 10 ^3/uL (0.4-5.4); Lymphocytes % (auto) 4.7 % (10.0-50.0); Mean Corpuscular Hemoglobin 32.3 pg (28.0-32.0); Mean Corpuscular Hgb Conc. 33.1 g/dL (32.0-36.0); Mean Corpuscular Volume 97.5 fL (80.0-100.0); Monocytes # (auto) 0.5 10 ^3/uL (0-1.3); Neutrophils # (auto) 11.2 10 ^3/uL (1.6-8.6); Neutrophils % (auto) 90.9 % (37.0-80.0); Nucleated Red Blood Cells % 0.2 %; Platelet Count (auto) 135 10^3/uL (140-450); Red Blood Cells 3.97 10^6/uL (4.5-5.90); Red Cell Distribution Width 14.4 % (11.8-14.3); White Blood Cell 12.3 10^3/uL (4.4-10.8)
[2020-01-23 06:42] LABS: Albumin 1.7 g/dL (3.4-5.0); Calcium 7.6 mg/dL (8.5-10.1); Potassium 5.4 mmol/L (3.5-5.1)
[2020-01-23 06:46] LABS: Bilirubin, Total 7.7 mg/dL (0.2-1.0); Total Protein 5.2 g/dL (6.4-8.2)
[2020-01-23] MEDS: BUDESONIDE (INHALATION) 0.5 MG/2 ML NEB NEB SCH ×2 (07:08→22:43)
[2020-01-23] MEDS: ALBUTEROL SULF 2.5 MG/0.5ML(0.5%) NEB SOLN NEB SCH ×3 (07:08→22:43)
[2020-01-23 07:27] LABS: BUN/Creatinine Ratio 60.4
[2020-01-23] MEDS: ENOXAPARIN SOD 80 MG/0.8ML SYRINGE SC SCH (10:00)
[2020-01-23] MEDS: PANTOPRAZOLE 40 MG/10 ML VIAL INJ IV SCH ×2 (10:00→10:05)
[2020-01-23] MEDS: DexAMETHasone SOD PHOS 10MG/1ML VIAL INJ IV SCH (10:05)
[2020-01-23] MEDS: ASCORBIC ACID 1,000 MG TAB PO SCH (10:05)
[2020-01-23] MEDS: CHOLECALCIFEROL (VITD3) 1,000UNIT=25mCg TAB PO SCH (10:05)
[2020-01-23] MEDS: THIAMINE 100mg/ml INJ (200mg/2ml VIAL) IV SCH (10:05)
[2020-01-23] MEDS: fentaNYL Drip 2500mCg/250mlNS 250 ML IV SCH ×2 (10:46→17:26)
[2020-01-23] MEDS: FLUCONAZOLE 200MG/100ML 100 ML IV SCH (11:05)
[2020-01-23] MEDS: ZINC SULFATE 220mg CAP or TAB PO SCH (12:18)
[2020-01-23] MEDS: NOREPINEPHRINE BITARTRATE 16 MG in SODIUM CHL 0.9% 250 ML IV SCH (15:43)
[2020-01-24] VITALS (98 sets, daily range): BP systolic 91–136; BP diastolic 48–77
[2020-01-24] MEDS: MEROPENEM 1GM IVPB 100 ML IV SCH ×3 (00:45→18:49)
[2020-01-24] MEDS: PHENYLEPHRINE IV 250 ML IV SCH ×3 (02:50→19:30)
[2020-01-24] MEDS: PROPOFOL 100 ML IV SCH ×3 (03:07→12:20)
[2020-01-24 04:50] LABS: BUN/Creatinine Ratio 66.7; Calcium 7.6 mg/dL (8.5-10.1)
[2020-01-24 05:09] LABS: Potassium 5.9 mmol/L (3.5-5.1)
[2020-01-24] MEDS: InsuLIN REG 1unit/0.01ml Soln (100units/ml) SC SCH ×4 (05:20→22:29)
[2020-01-24] MEDS: ACCU-CHEK COMFORT CURVE STRIP VI SCH ×4 (05:51→22:00)
[2020-01-24] MEDS: FUROSEMIDE 20 MG/2 ML VIAL IV SCH ×2 (05:51→20:11)
[2020-01-24] MEDS: ALBUTEROL SULF 2.5 MG/0.5ML(0.5%) NEB SOLN NEB SCH ×3 (06:17→22:49)
[2020-01-24] MEDS: BUDESONIDE (INHALATION) 0.5 MG/2 ML NEB NEB SCH ×2 (06:18→22:49)
[2020-01-24] MEDS: MIDAZOLAM DRIP 50 mg/50mL 50 ML IV SCH ×3 (06:46→18:00)
[2020-01-24] MEDS: fentaNYL Drip 2500mCg/250mlNS 250 ML IV SCH ×2 (06:47→19:45)
[2020-01-24 08:12] LABS: Basophils # (auto) 0 10 ^3/uL (0-0.2); Basophils % (auto) 0.1 % (0.0-2.0); Eosinophils # (auto) 0 10 ^3/uL (0-0.8); Hematocrit 39.2 % (41.0-53.0); Hemoglobin 12.8 g/dL (13.5-17.5); Lymphocytes # (auto) 0.5 10 ^3/uL (0.4-5.4); Lymphocytes % (auto) 3.3 % (10.0-50.0); Mean Corpuscular Hemoglobin 32.7 pg (28.0-32.0); Mean Corpuscular Hgb Conc. 32.6 g/dL (32.0-36.0); Mean Corpuscular Volume 100.3 fL (80.0-100.0); Monocytes # (auto) 0.7 10 ^3/uL (0-1.3); Monocytes % (auto) 4.5 % (0.0-12.0); Neutrophils # (auto) 14.5 10 ^3/uL (1.6-8.6); Neutrophils % (auto) 92.1 % (37.0-80.0); Nucleated Red Blood Cells % 0.2 %; Platelet Count (auto) 149 10^3/uL (140-450); Red Blood Cells 3.91 10^6/uL (4.5-5.90); Red Cell Distribution Width 14.6 % (11.8-14.3); White Blood Cell 15.8 10^3/uL (4.4-10.8)
[2020-01-24] MEDS ORDERED: FUROSEMIDE 20 MG/2 ML VIAL IV ONE (09:15)
[2020-01-24] MEDS: FLUCONAZOLE 200MG/100ML 100 ML IV SCH ×2 (10:23→13:00)
[2020-01-24] MEDS: DexAMETHasone SOD PHOS 10MG/1ML VIAL INJ IV SCH (10:23)
[2020-01-24] MEDS: ASCORBIC ACID 1,000 MG TAB PO SCH (10:23)
[2020-01-24] MEDS: PANTOPRAZOLE 40 MG/10 ML VIAL INJ IV SCH (10:24)
[2020-01-24] MEDS: CHOLECALCIFEROL (VITD3) 1,000UNIT=25mCg TAB PO SCH (10:24)
[2020-01-24] MEDS: ZINC SULFATE 220mg CAP or TAB PO SCH (10:30)
[2020-01-24] MEDS: THIAMINE 100mg/ml INJ (200mg/2ml VIAL) IV SCH (10:32)
[2020-01-24] MEDS: SODIUM ZIRCONIUM CYCL 10 GM PAK PO SCH ×3 (10:49→22:00)
[2020-01-24 13:15] LABS: INR 1.18 (0.9-1.15); Partial Thromboplastin Time 25.3 sec (23.0-31.2)
[2020-01-24] MEDS: ALBUMIN 25% 100 ML IV SCH ×2 (14:34→18:50)
[2020-01-24] MEDS: NOREPINEPHRINE BITARTRATE 16 MG in SODIUM CHL 0.9% 250 ML IV SCH (18:50)
[2020-01-25] VITALS (99 sets, daily range): BP systolic 94–125; BP diastolic 50–69
[2020-01-25] MEDS: ALBUMIN 25% 100 ML IV SCH (00:30)
[2020-01-25] MEDS: MEROPENEM 1GM IVPB 100 ML IV SCH ×3 (00:45→17:30)
[2020-01-25 03:47] LABS: Basophils # (auto) 0.1 10 ^3/uL (0-0.2); Basophils % (auto) 1.5 % (0.0-2.0); Eosinophils # (auto) 0 10 ^3/uL (0-0.8); Eosinophils % (auto) 0.7 % (0.0-7.0); Hematocrit 32.4 % (41.0-53.0); Lymphocytes # (auto) 0.4 10 ^3/uL (0.4-5.4); Lymphocytes % (auto) 5.1 % (10.0-50.0); Mean Corpuscular Hemoglobin 33.9 pg (28.0-32.0); Mean Corpuscular Volume 99.6 fL (80.0-100.0); Monocytes # (auto) 0.3 10 ^3/uL (0-1.3); Monocytes % (auto) 4.6 % (0.0-12.0); Neutrophils # (auto) 6.4 10 ^3/uL (1.6-8.6); Neutrophils % (auto) 88.1 % (37.0-80.0); Nucleated Red Blood Cells % 0.1 %; Platelet Count (auto) 99 10^3/uL (140-450); Red Blood Cells 3.25 10^6/uL (4.5-5.90); Red Cell Distribution Width 14.8 % (11.8-14.3); White Blood Cell 7.3 10^3/uL (4.4-10.8)
[2020-01-25] MEDS: PHENYLEPHRINE IV 250 ML IV SCH ×3 (03:50→20:30)
[2020-01-25 04:08] LABS: Albumin 2.7 g/dL (3.4-5.0); Magnesium 2.9 mg/dL (1.6-2.6)
[2020-01-25 04:13] LABS: Bilirubin, Total 5.8 mg/dL (0.2-1.0); Potassium 5.7 mmol/L (3.5-5.1); Total Protein 5.6 g/dL (6.4-8.2)
[2020-01-25] MEDS: PROPOFOL 100 ML IV SCH ×4 (05:00→22:00)
[2020-01-25] MEDS: SODIUM ZIRCONIUM CYCL 10 GM PAK PO SCH ×3 (05:58→22:00)
[2020-01-25] MEDS: FUROSEMIDE 20 MG/2 ML VIAL IV SCH ×2 (06:00→19:45)
[2020-01-25] MEDS: ALBUTEROL SULF 2.5 MG/0.5ML(0.5%) NEB SOLN NEB SCH ×3 (06:01→22:10)
[2020-01-25] MEDS: BUDESONIDE (INHALATION) 0.5 MG/2 ML NEB NEB SCH ×2 (06:01→22:10)
[2020-01-25] MEDS: InsuLIN REG 1unit/0.01ml Soln (100units/ml) SC SCH ×5 (06:50→22:00)
[2020-01-25] MEDS: ACCU-CHEK COMFORT CURVE STRIP VI SCH ×4 (06:50→22:00)
[2020-01-25] MEDS: fentaNYL Drip 2500mCg/250mlNS 250 ML IV SCH ×2 (07:45→20:00)
[2020-01-25] MEDS: ASCORBIC ACID 1,000 MG TAB PO SCH ×2 (08:17→18:45)
[2020-01-25] MEDS: ZINC SULFATE 220mg CAP or TAB PO SCH ×2 (08:17→18:45)
[2020-01-25] MEDS: CHOLECALCIFEROL (VITD3) 1,000UNIT=25mCg TAB PO SCH ×2 (08:17→18:45)
[2020-01-25] MEDS: MIDAZOLAM DRIP 50 mg/50mL 50 ML IV SCH ×3 (08:20→20:00)
[2020-01-25] MEDS: DexAMETHasone SOD PHOS 10MG/1ML VIAL INJ IV SCH (10:46)
[2020-01-25] MEDS: THIAMINE 100mg/ml INJ (200mg/2ml VIAL) IV SCH (10:46)
[2020-01-25] MEDS: PANTOPRAZOLE 40 MG/10 ML VIAL INJ IV SCH (10:47)
[2020-01-25] MEDS: FLUCONAZOLE 200MG/100ML 100 ML IV SCH (12:39)
[2020-01-25] MEDS: NOREPINEPHRINE BITARTRATE 16 MG in SODIUM CHL 0.9% 250 ML IV SCH (15:43)
[2020-01-25] MEDS: Glucerna 1.2 Cal 1Liter BOTTLE GT SCH (19:00)
[2020-01-25] MEDS ORDERED: FUROSEMIDE 20 MG/2 ML VIAL IV ONE (23:00)
[2020-01-26] VITALS (94 sets, daily range): BP systolic 92–127; BP diastolic 52–79
[2020-01-26] MEDS: MEROPENEM 1GM IVPB 100 ML IV SCH ×3 (00:52→17:11)
[2020-01-26] MEDS: ACETAMINOPHEN 500 MG TAB PO PRN (02:16)
[2020-01-26] MEDS: PROPOFOL 100 ML IV SCH ×2 (03:55→06:37)
[2020-01-26 04:19] LABS: BUN/Creatinine Ratio 73.2; CRP High Sensitivity 0.26 mg/dL (< 0.3); Calcium 7.7 mg/dL (8.5-10.1); Potassium 4.9 mmol/L (3.5-5.1)
[2020-01-26] MEDS: PHENYLEPHRINE IV 250 ML IV SCH ×2 (04:50→13:09)
[2020-01-26] MEDS: ACCU-CHEK COMFORT CURVE STRIP VI SCH ×4 (06:15→22:00)
[2020-01-26] MEDS: SODIUM ZIRCONIUM CYCL 10 GM PAK PO SCH ×3 (06:15→22:00)
[2020-01-26] MEDS: FUROSEMIDE 20 MG/2 ML VIAL IV SCH (06:15)
[2020-01-26] MEDS: InsuLIN REG 1unit/0.01ml Soln (100units/ml) SC SCH ×4 (06:17→22:00)
[2020-01-26] MEDS: ALBUTEROL SULF 2.5 MG/0.5ML(0.5%) NEB SOLN NEB SCH ×3 (06:35→22:14)
[2020-01-26] MEDS: BUDESONIDE (INHALATION) 0.5 MG/2 ML NEB NEB SCH ×2 (06:35→22:14)
[2020-01-26] MEDS: MIDAZOLAM DRIP 50 mg/50mL 50 ML IV SCH (06:40)
[2020-01-26] MEDS: fentaNYL Drip 2500mCg/250mlNS 250 ML IV SCH (08:20)
[2020-01-26] MEDS: THIAMINE 100mg/ml INJ (200mg/2ml VIAL) IV SCH (10:26)
[2020-01-26] MEDS: PANTOPRAZOLE 40 MG/10 ML VIAL INJ IV SCH (10:26)
[2020-01-26] MEDS: DexAMETHasone SOD PHOS 10MG/1ML VIAL INJ IV SCH (10:26)
[2020-01-26] MEDS: FLUCONAZOLE 200MG/100ML 100 ML IV SCH (10:26)
[2020-01-26] MEDS: ZINC SULFATE 220mg CAP or TAB PO SCH (10:26)
[2020-01-26] MEDS: ASCORBIC ACID 1,000 MG TAB PO SCH (10:27)
[2020-01-26] MEDS: CHOLECALCIFEROL (VITD3) 1,000UNIT=25mCg TAB PO SCH (10:27)
[2020-01-26] MEDS: FREE WATER GT SCH ×4 (10:30→22:00)
[2020-01-26] MEDS: NOREPINEPHRINE BITARTRATE 16 MG in SODIUM CHL 0.9% 250 ML IV SCH (15:40)
[2020-01-27] VITALS (92 sets, daily range): BP systolic 98–133; BP diastolic 55–78
[2020-01-27] MEDS: MEROPENEM 1GM IVPB 100 ML IV SCH ×3 (01:03→16:45)
[2020-01-27] MEDS: FREE WATER GT SCH ×6 (02:00→22:00)
[2020-01-27] MEDS: MIDAZOLAM DRIP 50 mg/50mL 50 ML IV SCH ×3 (05:00→17:28)
[2020-01-27] MEDS: PROPOFOL 100 ML IV SCH ×4 (05:00→23:00)
[2020-01-27] MEDS: SODIUM ZIRCONIUM CYCL 10 GM PAK PO SCH ×3 (05:23→22:00)
[2020-01-27] MEDS: ACCU-CHEK COMFORT CURVE STRIP VI SCH ×4 (05:25→22:00)
[2020-01-27] MEDS: InsuLIN REG 1unit/0.01ml Soln (100units/ml) SC SCH ×4 (05:25→22:00)
[2020-01-27 08:38] LABS: Eosinophils # (auto) 0 10 ^3/uL (0-0.8); Hemoglobin 11.8 g/dL (13.5-17.5); Lymphocytes # (auto) 0.4 10 ^3/uL (0.4-5.4)
[2020-01-27 08:39] LABS: Basophils # (auto) 0.4 10 ^3/uL (0-0.2); Basophils % (auto) 4.9 % (0.0-2.0); Hematocrit 35.7 % (41.0-53.0); Lymphocytes % (auto) 4.3 % (10.0-50.0); Mean Corpuscular Hemoglobin 33.1 pg (28.0-32.0); Mean Corpuscular Volume 100.4 fL (80.0-100.0); Monocytes # (auto) 0.4 10 ^3/uL (0-1.3); Monocytes % (auto) 4.2 % (0.0-12.0); Neutrophils # (auto) 7.2 10 ^3/uL (1.6-8.6); Neutrophils % (auto) 86.6 % (37.0-80.0); Nucleated Red Blood Cells % 0.1 %; Platelet Count (auto) 62 10^3/uL (140-450); Red Blood Cells 3.56 10^6/uL (4.5-5.90); Red Cell Distribution Width 15.2 % (11.8-14.3); White Blood Cell 8.4 10^3/uL (4.4-10.8)
[2020-01-27] MEDS: BUDESONIDE (INHALATION) 0.5 MG/2 ML NEB NEB SCH ×2 (08:57→22:31)
[2020-01-27] MEDS: ALBUTEROL SULF 2.5 MG/0.5ML(0.5%) NEB SOLN NEB SCH ×3 (08:57→22:30)
[2020-01-27 09:03] LABS: Calcium 8.2 mg/dL (8.5-10.1); Potassium 5.4 mmol/L (3.5-5.1)
[2020-01-27] MEDS: ZINC SULFATE 220mg CAP or TAB PO SCH (10:00)
[2020-01-27] MEDS: FLUCONAZOLE 200MG/100ML 100 ML IV SCH (10:00)
[2020-01-27] MEDS: CHOLECALCIFEROL (VITD3) 1,000UNIT=25mCg TAB PO SCH (10:00)
[2020-01-27] MEDS: THIAMINE 100mg/ml INJ (200mg/2ml VIAL) IV SCH (10:00)
[2020-01-27] MEDS: PANTOPRAZOLE 40 MG/10 ML VIAL INJ IV SCH (10:00)
[2020-01-27] MEDS: DexAMETHasone SOD PHOS 10MG/1ML VIAL INJ IV SCH (10:00)
[2020-01-27] MEDS: ASCORBIC ACID 1,000 MG TAB PO SCH (10:00)
[2020-01-27] MEDS: fentaNYL Drip 2500mCg/250mlNS 250 ML IV SCH ×2 (12:30→23:00)
[2020-01-27] MEDS ORDERED: POLYETHYLENE GLYCOL 17 GM PWDR ONE (13:57)
[2020-01-28] VITALS (70 sets, daily range): BP systolic 105–157; BP diastolic 44–89
[2020-01-28] MEDS: MEROPENEM 1GM IVPB 100 ML IV SCH ×3 (00:45→16:45)
[2020-01-28] MEDS: FREE WATER GT SCH ×6 (02:00→22:00)
[2020-01-28] MEDS: PROPOFOL 100 ML IV SCH ×5 (03:30→21:30)
[2020-01-28 04:32] LABS: Basophils # (auto) 0.1 10 ^3/uL (0-0.2); Basophils % (auto) 1.3 % (0.0-2.0); Eosinophils # (auto) 0 10 ^3/uL (0-0.8); Hematocrit 36.8 % (41.0-53.0); Hemoglobin 11.9 g/dL (13.5-17.5); Lymphocytes # (auto) 0.4 10 ^3/uL (0.4-5.4); Lymphocytes % (auto) 4.8 % (10.0-50.0); Mean Corpuscular Hemoglobin 33.3 pg (28.0-32.0); Mean Corpuscular Hgb Conc. 32.3 g/dL (32.0-36.0); Mean Corpuscular Volume 102.9 fL (80.0-100.0); Monocytes # (auto) 0.4 10 ^3/uL (0-1.3); Neutrophils % (auto) 88.9 % (37.0-80.0); Nucleated Red Blood Cells % 0.1 %; Platelet Count (auto) 55 10^3/uL (140-450); Red Blood Cells 3.58 10^6/uL (4.5-5.90); Red Cell Distribution Width 15.8 % (11.8-14.3); White Blood Cell 7.9 10^3/uL (4.4-10.8)
[2020-01-28 04:53] LABS: BUN/Creatinine Ratio 71.9; Calcium 8.3 mg/dL (8.5-10.1)
[2020-01-28 05:14] LABS: Potassium 5.9 mmol/L (3.5-5.1)
[2020-01-28] MEDS: MIDAZOLAM DRIP 50 mg/50mL 50 ML IV SCH ×3 (06:00→22:30)
[2020-01-28] MEDS: SODIUM ZIRCONIUM CYCL 10 GM PAK PO SCH ×3 (06:00→22:00)
[2020-01-28] MEDS: InsuLIN REG 1unit/0.01ml Soln (100units/ml) SC SCH ×5 (06:37→22:45)
[2020-01-28] MEDS: ACCU-CHEK COMFORT CURVE STRIP VI SCH ×4 (06:38→22:00)
[2020-01-28] MEDS: ALBUTEROL SULF 2.5 MG/0.5ML(0.5%) NEB SOLN NEB SCH ×3 (07:17→22:23)
[2020-01-28] MEDS: BUDESONIDE (INHALATION) 0.5 MG/2 ML NEB NEB SCH ×2 (07:17→22:23)
[2020-01-28] MEDS ORDERED: ALBUTEROL SULF 2.5 MG/0.5ML(0.5%) NEB SOLN NEB ONE (08:45)
[2020-01-28] MEDS ORDERED: SODIUM BICARBONATE 8.4% INJ 50ML SYRINGE IV ONE (08:45)
[2020-01-28] MEDS ORDERED: DEXTROSE (50%) 50ML SYRG IV ONE (08:45)
[2020-01-28] MEDS ORDERED: InsuLIN REG 1unit/0.01ml Soln (100units/ml) IV ONE (08:45)
[2020-01-28] MEDS: DexAMETHasone SOD PHOS 10MG/1ML VIAL INJ IV SCH (10:00)
[2020-01-28] MEDS: THIAMINE 100mg/ml INJ (200mg/2ml VIAL) IV SCH (10:00)
[2020-01-28] MEDS: FLUCONAZOLE 200MG/100ML 100 ML IV SCH (10:00)
[2020-01-28] MEDS: ASCORBIC ACID 1,000 MG TAB PO SCH (10:00)
[2020-01-28] MEDS: ZINC SULFATE 220mg CAP or TAB PO SCH (10:00)
[2020-01-28] MEDS: PANTOPRAZOLE 40 MG/10 ML VIAL INJ IV SCH (10:00)
[2020-01-28] MEDS: CHOLECALCIFEROL (VITD3) 1,000UNIT=25mCg TAB PO SCH (10:00)
[2020-01-28 11:35] LABS: Sodium Urine 106 mmol/L (40-220)
[2020-01-28 11:39] LABS: Creatinine, Urine 34 mg/dL (30.0-125.0)
[2020-01-28] MEDS: fentaNYL Drip 2500mCg/250mlNS 250 ML IV SCH (11:41)
[2020-01-28 14:21] LABS: Eosinophils # (auto) 0 10 ^3/uL (0-0.8); Lymphocytes # (auto) 0.2 10 ^3/uL (0.4-5.4); Mean Corpuscular Hemoglobin 32.7 pg (28.0-32.0); Mean Corpuscular Hgb Conc. 32.2 g/dL (32.0-36.0); Mean Corpuscular Volume 101.6 fL (80.0-100.0); Monocytes # (auto) 0.4 10 ^3/uL (0-1.3); Platelet Count (auto) 56 10^3/uL (140-450); White Blood Cell 8.2 10^3/uL (4.4-10.8)
[2020-01-28 14:23] LABS: Basophils # (auto) 0 10 ^3/uL (0-0.2); Basophils % (auto) 0.1 % (0.0-2.0); Hematocrit 40.7 % (41.0-53.0); Hemoglobin 13.1 g/dL (13.5-17.5); Monocytes % (auto) 4.5 % (0.0-12.0); Neutrophils # (auto) 7.6 10 ^3/uL (1.6-8.6); Neutrophils % (auto) 93.4 % (37.0-80.0); Red Blood Cells 4.01 10^6/uL (4.5-5.90); Red Cell Distribution Width 15.5 % (11.8-14.3)
[2020-01-28 14:37] LABS: BUN/Creatinine Ratio 57.6; Calcium 8.6 mg/dL (8.5-10.1)
[2020-01-28 15:38] LABS: Potassium 5.7 mmol/L (3.5-5.1)
[2020-01-29] VITALS (84 sets, daily range): BP systolic 93–151; BP diastolic 54–92
[2020-01-29] MEDS: MEROPENEM 1GM IVPB 100 ML IV SCH ×3 (00:45→17:00)
[2020-01-29] MEDS: FREE WATER GT SCH ×6 (02:00→22:00)
[2020-01-29] MEDS: SODIUM ZIRCONIUM CYCL 10 GM PAK PO SCH ×3 (06:00→22:00)
[2020-01-29] MEDS: ALBUTEROL SULF 2.5 MG/0.5ML(0.5%) NEB SOLN NEB SCH ×3 (06:34→22:24)
[2020-01-29] MEDS: BUDESONIDE (INHALATION) 0.5 MG/2 ML NEB NEB SCH ×2 (06:35→22:24)
[2020-01-29] MEDS: PROPOFOL 100 ML IV SCH ×5 (06:49→22:00)
[2020-01-29] MEDS: InsuLIN REG 1unit/0.01ml Soln (100units/ml) SC SCH ×4 (06:52→22:00)
[2020-01-29] MEDS: ACCU-CHEK COMFORT CURVE STRIP VI SCH ×4 (06:52→22:00)
[2020-01-29] MEDS: MIDAZOLAM DRIP 50 mg/50mL 50 ML IV SCH ×2 (06:54→17:04)
[2020-01-29] MEDS: PHENYLEPHRINE IV 250 ML IV SCH ×6 (07:50→16:10)
[2020-01-29] MEDS: NOREPINEPHRINE BITARTRATE 16 MG in SODIUM CHL 0.9% 250 ML IV SCH ×3 (08:04→15:43)
[2020-01-29 08:18] LABS: BUN/Creatinine Ratio 62.3; Calcium 8.4 mg/dL (8.5-10.1)
[2020-01-29 08:19] LABS: Basophils # (auto) 0 10 ^3/uL (0-0.2); Basophils % (auto) 0.2 % (0.0-2.0); Eosinophils # (auto) 0 10 ^3/uL (0-0.8); Eosinophils % (auto) 0.1 % (0.0-7.0); Hematocrit 30.1 % (41.0-53.0); Lymphocytes # (auto) 0.5 10 ^3/uL (0.4-5.4); Lymphocytes % (auto) 4.3 % (10.0-50.0); Mean Corpuscular Hemoglobin 33.8 pg (28.0-32.0); Mean Corpuscular Hgb Conc. 33.4 g/dL (32.0-36.0); Mean Corpuscular Volume 101.4 fL (80.0-100.0); Monocytes # (auto) 0.5 10 ^3/uL (0-1.3); Monocytes % (auto) 4.4 % (0.0-12.0); Neutrophils # (auto) 9.8 10 ^3/uL (1.6-8.6); Nucleated Red Blood Cells % 0.1 %; Platelet Count (auto) 73 10^3/uL (140-450); Red Blood Cells 2.97 10^6/uL (4.5-5.90); Red Cell Distribution Width 15.2 % (11.8-14.3); White Blood Cell 10.8 10^3/uL (4.4-10.8)
[2020-01-29 08:25] LABS: Potassium 5.7 mmol/L (3.5-5.1)
[2020-01-29] MEDS: metOLazone 5 MG TAB NG SCH ×3 (10:00→16:25)
[2020-01-29] MEDS: PANTOPRAZOLE 40 MG/10 ML VIAL INJ IV SCH ×2 (10:26→22:00)
[2020-01-29] MEDS: ZINC SULFATE 220mg CAP or TAB PO SCH (10:27)
[2020-01-29] MEDS: ASCORBIC ACID 1,000 MG TAB PO SCH (10:27)
[2020-01-29] MEDS: FLUCONAZOLE 200MG/100ML 100 ML IV SCH (10:27)
[2020-01-29] MEDS: CHOLECALCIFEROL (VITD3) 1,000UNIT=25mCg TAB PO SCH (10:27)
[2020-01-29] MEDS: DexAMETHasone SOD PHOS 10MG/1ML VIAL INJ IV SCH (10:31)
[2020-01-29] MEDS ORDERED: PANTOPRAZOLE 40 MG/10 ML VIAL INJ IV ONE (12:00)
[2020-01-29] MEDS: THIAMINE 100mg/ml INJ (200mg/2ml VIAL) IV SCH (13:24)
[2020-01-29] MEDS: fentaNYL Drip 2500mCg/250mlNS 250 ML IV SCH (15:27)
[2020-01-29 17:22] LABS: INR 1.12 (0.9-1.15)
[2020-01-29] MEDS ORDERED: LIDOCAINE 1% (LOCAL ANESTH.) PF 5ml SDV ID ONE (19:45)
[2020-01-29] MEDS: SODIUM CHLOR 0.9% PF (SALINE LOCK) 10ML VIAL/SYR IV SCH (22:00)
[2020-01-30] VITALS (98 sets, daily range): BP systolic 78–121; BP diastolic 44–75
[2020-01-30] MEDS: MEROPENEM 1GM IVPB 100 ML IV SCH ×3 (00:34→16:45)
[2020-01-30] MEDS: MIDAZOLAM DRIP 50 mg/50mL 50 ML IV SCH (01:00)
[2020-01-30] MEDS: FREE WATER GT SCH ×6 (02:00→22:00)
[2020-01-30] MEDS: PROPOFOL 100 ML IV SCH ×3 (02:30→23:05)
[2020-01-30 05:11] LABS: Basophils # (auto) 0.1 10 ^3/uL (0-0.2); Basophils % (auto) 0.8 % (0.0-2.0); Eosinophils # (auto) 0 10 ^3/uL (0-0.8); Monocytes # (auto) 0.5 10 ^3/uL (0-1.3); Red Cell Distribution Width 15.1 % (11.8-14.3)
[2020-01-30 05:13] LABS: Eosinophils % (auto) 0.2 % (0.0-7.0); Hematocrit 34.8 % (41.0-53.0); Hemoglobin 11.4 g/dL (13.5-17.5); Lymphocytes # (auto) 0.5 10 ^3/uL (0.4-5.4); Mean Corpuscular Hemoglobin 33.4 pg (28.0-32.0); Mean Corpuscular Hgb Conc. 32.8 g/dL (32.0-36.0); Mean Corpuscular Volume 101.6 fL (80.0-100.0); Monocytes % (auto) 5.7 % (0.0-12.0); Neutrophils # (auto) 7.7 10 ^3/uL (1.6-8.6); Neutrophils % (auto) 87.3 % (37.0-80.0); Platelet Count (auto) 48 10^3/uL (140-450); Red Blood Cells 3.42 10^6/uL (4.5-5.90); White Blood Cell 8.8 10^3/uL (4.4-10.8)
[2020-01-30 05:30] LABS: Calcium 8.1 mg/dL (8.5-10.1); Potassium 4.6 mmol/L (3.5-5.1)
[2020-01-30] MEDS: fentaNYL Drip 2500mCg/250mlNS 250 ML IV SCH (06:00)
[2020-01-30] MEDS: SODIUM ZIRCONIUM CYCL 10 GM PAK PO SCH (06:00)
[2020-01-30] MEDS: ACCU-CHEK COMFORT CURVE STRIP VI SCH ×4 (07:00→22:37)
[2020-01-30] MEDS: InsuLIN REG 1unit/0.01ml Soln (100units/ml) SC SCH ×4 (07:00→22:00)
[2020-01-30] MEDS: BUDESONIDE (INHALATION) 0.5 MG/2 ML NEB NEB SCH ×2 (09:50→22:22)
[2020-01-30] MEDS: ALBUTEROL SULF 2.5 MG/0.5ML(0.5%) NEB SOLN NEB SCH ×3 (09:50→22:22)
[2020-01-30] MEDS: FLUCONAZOLE 200MG/100ML 100 ML IV SCH ×2 (10:00→13:20)
[2020-01-30] MEDS: ASCORBIC ACID 1,000 MG TAB PO SCH (10:00)
[2020-01-30] MEDS: ZINC SULFATE 220mg CAP or TAB PO SCH (10:00)
[2020-01-30] MEDS: CHOLECALCIFEROL (VITD3) 1,000UNIT=25mCg TAB PO SCH (10:00)
[2020-01-30] MEDS: THIAMINE 100mg/ml INJ (200mg/2ml VIAL) IV SCH (10:00)
[2020-01-30] MEDS: DexAMETHasone SOD PHOS 10MG/1ML VIAL INJ IV SCH ×2 (10:00→13:20)
[2020-01-30] MEDS: PANTOPRAZOLE 40 MG/10 ML VIAL INJ IV SCH ×2 (10:00→22:07)
[2020-01-30] MEDS: SODIUM CHLOR 0.9% PF (SALINE LOCK) 10ML VIAL/SYR IV SCH ×2 (10:00→22:07)
[2020-01-30] MEDS: metOLazone 5 MG TAB NG SCH (11:00)
[2020-01-30] MEDS: PHENYLEPHRINE IV 250 ML IV SCH (13:00)
[2020-01-30] MEDS ORDERED: POLYETHYLENE GLYCOL 17 GM PWDR PO PRN (13:15)
[2020-01-30] MEDS ORDERED: ALBUMIN 5% 50 ML IV ONE ×2 (13:15→15:30)
[2020-01-30] MEDS ORDERED: SODIUM CHLORIDE 0.9 % NEB SOLN 3ML NEB ONE (14:13)
[2020-01-30] MEDS ORDERED: METOCLOPRAMIDE HCL 5MG/ml INJ 2ml VIAL IV ONE (14:15)
[2020-01-30] MEDS ORDERED: BISACODYL 5 MG EC TAB PO ONE (14:15)
[2020-01-30] MEDS: NOREPINEPHRINE BITARTRATE 16 MG in SODIUM CHL 0.9% 250 ML IV SCH (15:43)
[2020-01-30] MEDS: LACTULOSE 20Gm/30ML SOLN PO SCH (18:00)
[2020-01-30] MEDS: METOCLOPRAMIDE HCL 5MG/ml INJ 2ml VIAL IV SCH (22:06)
[2020-01-31] VITALS (91 sets, daily range): BP systolic 73–172; BP diastolic 46–93
[2020-01-31] MEDS: LACTULOSE 20Gm/30ML SOLN PO SCH ×4 (00:25→18:00)
[2020-01-31] MEDS: MEROPENEM 1GM IVPB 100 ML IV SCH ×3 (00:26→16:45)
[2020-01-31] MEDS: FREE WATER GT SCH ×6 (02:40→22:22)
[2020-01-31 04:25] LABS: Eosinophils # (auto) 0 10 ^3/uL (0-0.8); Lymphocytes # (auto) 0.3 10 ^3/uL (0.4-5.4); Monocytes # (auto) 0.4 10 ^3/uL (0-1.3)
[2020-01-31 04:27] LABS: Basophils # (auto) 0 10 ^3/uL (0-0.2); Basophils % (auto) 0.4 % (0.0-2.0); Hematocrit 38.8 % (41.0-53.0); Hemoglobin 12.9 g/dL (13.5-17.5); Lymphocytes % (auto) 2.4 % (10.0-50.0); Mean Corpuscular Hemoglobin 33.3 pg (28.0-32.0); Mean Corpuscular Hgb Conc. 33.2 g/dL (32.0-36.0); Mean Corpuscular Volume 100.2 fL (80.0-100.0); Monocytes % (auto) 3.6 % (0.0-12.0); Neutrophils # (auto) 10.3 10 ^3/uL (1.6-8.6); Neutrophils % (auto) 93.6 % (37.0-80.0); Platelet Count (auto) 50 10^3/uL (140-450); Red Blood Cells 3.88 10^6/uL (4.5-5.90); Red Cell Distribution Width 14.8 % (11.8-14.3)
[2020-01-31 04:42] LABS: BUN/Creatinine Ratio 68.4; Calcium 8.6 mg/dL (8.5-10.1); Potassium 4.5 mmol/L (3.5-5.1)
[2020-01-31] MEDS: METOCLOPRAMIDE HCL 5MG/ml INJ 2ml VIAL IV SCH ×3 (05:24→22:19)
[2020-01-31] MEDS: PROPOFOL 100 ML IV SCH (05:26)
[2020-01-31] MEDS: fentaNYL Drip 2500mCg/250mlNS 250 ML IV SCH (05:35)
[2020-01-31] MEDS: ALBUTEROL SULF 2.5 MG/0.5ML(0.5%) NEB SOLN NEB SCH ×3 (06:27→22:05)
[2020-01-31] MEDS: BUDESONIDE (INHALATION) 0.5 MG/2 ML NEB NEB SCH ×2 (06:27→22:05)
[2020-01-31] MEDS: ACCU-CHEK COMFORT CURVE STRIP VI SCH ×4 (06:38→22:20)
[2020-01-31] MEDS: PANTOPRAZOLE 40 MG/10 ML VIAL INJ IV SCH ×2 (10:00→22:19)
[2020-01-31] MEDS ORDERED: THIAMINE 100mg/ml INJ (200mg/2ml VIAL) IV SCH (10:00)
[2020-01-31] MEDS: metOLazone 5 MG TAB NG SCH (10:00)
[2020-01-31] MEDS: SODIUM CHLOR 0.9% PF (SALINE LOCK) 10ML VIAL/SYR IV SCH ×2 (10:00→22:19)
[2020-01-31] MEDS: MIDAZOLAM DRIP 50 mg/50mL 50 ML IV SCH ×2 (10:46→20:26)
[2020-01-31] MEDS: InsuLIN REG 1unit/0.01ml Soln (100units/ml) SC SCH ×3 (11:30→22:00)
[2020-01-31] MEDS: PHENYLEPHRINE INJ 40 MG in SODIUM CHL 0.9% 250 ML IV SCH ×2 (12:00→20:25)
[2020-01-31] MEDS ORDERED: ATRACURIUM BESYLATE 1,000 MG in D5W 5% 150 ML IV SCH (12:18)
[2020-01-31] MEDS: NOREPINEPHRINE BITARTRATE 16 MG in SODIUM CHL 0.9% 250 ML IV SCH (15:43)
[2020-01-31] MEDS ORDERED: PHENYLEPHRINE IV 250 ML IV ONE (18:19)
[2020-01-31 18:39] LABS: Lactic Acid w/Reflex 4.8 mmol/L (0.4-2.0)
[2020-01-31] MEDS: ACETAMINOPHEN 500 MG TAB PO PRN (22:28)
[2020-02-01] VITALS (9 sets, daily range): BP systolic 85–93; BP diastolic 48–57
[2020-02-01] MEDS: MEROPENEM 1GM IVPB 100 ML IV SCH (00:01)
[2020-02-01] MEDS: LACTULOSE 20Gm/30ML SOLN PO SCH ×2 (00:01→06:00)
[2020-02-01] MEDS ORDERED: NOREPINEPHRINE 8 MG/250ML KIT 250 ML IV ONE ×2 (01:08→07:47)
[2020-02-01] MEDS: PHENYLEPHRINE INJ 40 MG in SODIUM CHL 0.9% 250 ML IV SCH (01:32)
[2020-02-01] MEDS: FREE WATER GT SCH ×2 (02:00→06:00)
[2020-02-01] MEDS: fentaNYL Drip 2500mCg/250mlNS 250 ML IV SCH (02:37)
[2020-02-01] MEDS ORDERED: ALBUMIN 5% 250 ML IV ONE ×2 (04:58→05:15)
[2020-02-01] MEDS ORDERED: VASOPRESSIN 20 UNIT/ML ONE (04:58)
[2020-02-01] MEDS ORDERED: VASOPRESSIN 50 UNITS in D5W 5% 247.5 ML IV SCH (05:15)
[2020-02-01] MEDS: METOCLOPRAMIDE HCL 5MG/ml INJ 2ml VIAL IV SCH (06:00)
[2020-02-01] MEDS: ALBUTEROL SULF 2.5 MG/0.5ML(0.5%) NEB SOLN NEB SCH (06:36)
[2020-02-01] MEDS: BUDESONIDE (INHALATION) 0.5 MG/2 ML NEB NEB SCH (06:37)
[2020-02-01] MEDS: InsuLIN REG 1unit/0.01ml Soln (100units/ml) SC SCH (06:52)
[2020-02-01] MEDS: ACCU-CHEK COMFORT CURVE STRIP VI SCH (06:53)
[2020-02-01] MEDS ORDERED: EPINEPHrine HCL INJECTION 4 MG in SODIUM CHL 0.9% 250 ML IV SCH (07:00)
[2020-02-01] MEDS ORDERED: AMIODARONE HCL (50 MG/ ML) 3 ML VIAL IV ONE (13:47)
[2020-02-01] MEDS ORDERED: SODIUM BICARBONATE 8.4% INJ 50ML SYRINGE IV ONE (13:47)
[2020-02-01] MEDS ORDERED: EPINEPHrine HCL 1 MG/10 ML SYRG IV ONE (13:47)
== END 2020-02-01 15:42 | disposition expired | DRG 870 ==
LOC: ER 15:50 → TELE 15:51 → DOU IN ICU 01-14 21:53 → ICU WEST 01-17 22:34
PROVIDERS: ADMIT Hospitalist; ATTEND Internal Medicine Pulmonary Disease
PROC: XW033E5 Introduction of Remdesivir Anti-infective into Peripheral Vein, Percutaneous Approach, New Technology Group 5 (ICD-10-PCS; 2020-01-15)
PROC: XW033H5 Introduction of Tocilizumab into Peripheral Vein, Percutaneous Approach, New Technology Group 5 (ICD-10-PCS; 2020-01-15)
PROC: 5A1955Z Respiratory Ventilation, Greater than 96 Consecutive Hours (ICD-10-PCS; principal; 2020-01-17)
PROC: 0BH17EZ Insertion of Endotracheal Airway into Trachea, Via Natural or Artificial Opening (ICD-10-PCS; 2020-01-17)
PROC: 0W9B30Z Drainage of Left Pleural Cavity with Drainage Device, Percutaneous Approach (ICD-10-PCS; 2020-01-17)
PROC: 30233K1 Transfusion of Nonautologous Frozen Plasma into Peripheral Vein, Percutaneous Approach (ICD-10-PCS; 2020-01-18)
PROC: 02HV33Z Insertion of Infusion Device into Superior Vena Cava, Percutaneous Approach (ICD-10-PCS; 2020-01-25)
DX: A41.89 Other specified sepsis (principal); U07.1 COVID-19; J12.89 Other viral pneumonia; E43 Unspecified severe protein-calorie malnutrition; N17.0 Acute kidney failure with tubular necrosis; R65.21 Severe sepsis with septic shock; J80 Acute respiratory distress syndrome; E22.2 Syndrome of inappropriate secretion of antidiuretic hormone; E87.2 Acidosis; J93.9 Pneumothorax, unspecified; G93.1 Anoxic brain damage, not elsewhere classified; I48.20 Chronic atrial fibrillation, unspecified; J90 Pleural effusion, not elsewhere classified; E66.9 Obesity, unspecified; E87.5 Hyperkalemia; I12.9 Hypertensive chronic kidney disease with stage 1 through stage 4 chronic kidney disease, or unspecified chronic kidney disease; J98.2 Interstitial emphysema; N18.9 Chronic kidney disease, unspecified; D69.6 Thrombocytopenia, unspecified; T38.0X5A Adverse effect of glucocorticoids and synthetic analogues, initial encounter; F17.200 Nicotine dependence, unspecified, uncomplicated; Z82.49 Family history of ischemic heart disease and other diseases of the circulatory system; Z86.19 Personal history of other infectious and parasitic diseases; R74.0 Nonspecific elevation of levels of transaminase and lactic acid dehydrogenase [LDH]; R94.5 Abnormal results of liver function studies; Z68.30 Body mass index [BMI] 30.0-30.9, adult
CPT/HCPCS: 36415; 36569; 36600; 71045; 80048; 80053; 81001; 82088; 82553; 82570; 82728; 82805; 82962; 83036; 83605; 83615; 83735; 83880; 83935; 84100; 84132; 84133; 84244; 84300; 84443; 84484; 84550; 85007; 85025; 85027; 85379; 85610; 85652; 85730; 86141; 86160; 86850; 86900; 86901; 87040; 87070; 87077; 87086; 87205; 93005; 94003; 94640; 94660; 99291; C9113; G0378; J0171; J0330; J1100; J1450; J1815; J2185; J2250; J2405; J2543; J2704; J3490; J7060; P9047